=== PATIENT | female | born 1990 | race Caucasian/White ===

== ENCOUNTER 2018-04-21 05:34 | Inpatient (IN) | payer BC, OTHER ==
[2018-04-21 06:07] VITALS: BMI 26.6
[2018-04-21] MEDS ORDERED: Promethazine HCl 25 MG/ML VIAL IM PRN (06:28)
[2018-04-21] MEDS ORDERED: NS / Oxytocin 40 units/1000ml 1,000 ML IV PRN (06:28)
[2018-04-21] MEDS ORDERED: Lidocaine 1% (PF) 30 ML VIAL SC PRN (06:28)
[2018-04-21] MEDS ORDERED: Lactated Ringer's 1,000 ML IV PRN (06:28)
[2018-04-21] MEDS ORDERED: Misoprostol 200 MCG TAB PR PRN (06:28)
[2018-04-21] MEDS ORDERED: HYDROcodone/Acetaminophen 5/325 mg Tablet PO PRN ×4 (06:28→20:06)
[2018-04-21] MEDS ORDERED: Ibuprofen 800 MG TAB PO PRN (06:28)
[2018-04-21] MEDS ORDERED: Ondansetron PF 4 MG/2 ML Vial IVP PRN (06:28)
[2018-04-21] MEDS ORDERED: Dextrose 5%-Lactated Ringers 1,000 ML IV SCH (06:30)
[2018-04-21 06:45] LABS: Hemoglobin 13.7 g/dL (12.0-16.0); Mean Corpuscular Hemoglobin 32.5 pg (27.0-31.0); Mean Corpuscular Volume 92.8 fL (78.0-98.0); Mean Platelet Volume 8.3 fL (7.4-10.4); Platelet Count 206 thou/uL (130-400); RBC Distribution Width 11.5 % (11.5-14.5); White Blood Cell (WBC) Count 9.7 thou/uL (4.8-10.8)
[2018-04-21 07:21] LABS: HBSAg Index 0.21 S/CO (0-0.99); Hep B Surf Ag Non-Reactive S/CO (NonReactive)
[2018-04-21 07:22] LABS: Syphilis Antibody Nonreactive (Nonreactive); Syphilis Antibody Index 0.07 S/CO (<1.00 Non-Reactive)
--- NOTE | 2018-04-21 12:32 | PDOC.LDHP ---
Labor and Delivery H&P Chief complaint: loss of fluid (Patient c.o a puddle of fluid on floor the size of her palm after using the restroom on 04.20.18 at 1200. She has had some small amounts of fluids in a pad since then. All were clear/yellow tinge. At approximately 2300 she started having more consistnetn painful contractions every 6 mins lasting 40 seconds. She arrived to the hospital at 0430 am for evaluation.) HPI: Patient c.o a puddle of fluid on floor the size of her palm after using the restroom on 04.20.18 at 1200. She has had some small amounts of fluids in a pad since then. All were clear/yellow tinge. At approximately 2300 she started having more consistnetn painful contractions every 6 mins lasting 40 seconds. She arrived to the hospital at 0430 am for evaluation. Current gestational age (weeks): 40 (6 days) Due date: 04/15/18 Grav: 1 Para: 0 Current complications: none Abnormal US findings: No Current medications: pre- vitamins Allergies/Adverse Reactions: Allergies Allergy/AdvReac Type Severity Reaction Status Date / Time No Known Allergies Allergy Verified 04/21/18 06:08 Social history: none - Physical Exam Vital signs reviewed and normal: yes General: NAD, breathing through contractions Lungs: nonlabored breathing Abdomen: gravid Extremeties: no edema FHT: category 1 - Vaginal Exam cm dilated: 5 Effacement: 90% Station: 0 - OB Labs Blood type: A RH: positive Antibody Screen: negative HIV: negative RPR: negative HEPSAg: negative 1 hour GCT: negative GBS: negative Urine drug screen: not done Rubella: non-immune - Assessment L&D Assessment: term rupture in membranes - Plan Plan: labor augmentation if indicated -: Anticipate low intervention protocol.
[2018-04-21] MEDS ORDERED: Oxytocin 10 UNITS/ML VIAL ONE ×2 (15:23)
[2018-04-21] MEDS ORDERED: Misoprostol 200 MCG TAB ONE (15:24)
--- NOTE | 2018-04-21 16:45 | PDOC.EVN ---
Event Note - Event Note Event Note: CTSP for deep variables with pushing and consideration of VE. Baby over very tight perineal body. Perineum infiltreated with 1% lidocaine prior to my arrival. Small 2* episiotomy performed, vigorous baby delivered with next push. Apgars pending. Placenta delivery and repair per Linette Kulkarni.
--- NOTE | 2018-04-21 17:12 | PDOC.OPDEL ---
OB Operative/Delivery Note Delivery Dr/Surgeon: Milad Kulkarni Assist: Kenan Pre-Delivery Diagnosis: active labor Procedure/Post Delivery Dx: spontaneous vaginal delivery (2nd degree episiotomy) Weeks gestation: 40 Anesthesia: local (local in perineium) - Additional Findings/Plan Placenta delivered: spontaneous Repaired Obstetrical Laceration: episiotomy (2nd degree) Estimated blood loss: 400mL see nurse note for QBL Post delivery plan: routine recovery
[2018-04-21] MEDS ORDERED: Milk Of Magnesia 30 ML UDCUP PO PRN (20:06)
[2018-04-21] MEDS ORDERED: Methylergonovine 0.2 MG/ML VIAL IM PRN (20:06)
[2018-04-21] MEDS ORDERED: Misoprostol 200 MCG TAB VAG PRN (20:06)
[2018-04-21] MEDS ORDERED: Benzocaine/Menthol 20-0.5% 60 ML CAN TOP PRN (20:06)
[2018-04-21] MEDS ORDERED: NS / Oxytocin 40 units/1000ml 1,000 ML IV SCH (20:06)
[2018-04-21] MEDS ORDERED: Bisacodyl 10 MG SUPP PR PRN (20:06)
[2018-04-21] MEDS ORDERED: Lanolin Ointment 7 GM TUBE TOP PRN (20:06)
[2018-04-21] MEDS: Docusate Calcium (SURFAK) 240 MG CAP PO SCH (21:29)
[2018-04-21] MEDS: Ibuprofen 800 MG TAB PO SCH (21:29)
[2018-04-22] MEDS: Ibuprofen 800 MG TAB PO SCH ×3 (05:21→18:52)
[2018-04-22 05:40] LABS: Hemoglobin 11.1 g/dL (12.0-16.0); Mean Corpuscular HGB CONC 35.5 g/dL (32.0-36.0); Mean Corpuscular Hemoglobin 33.3 pg (27.0-31.0); Mean Corpuscular Volume 93.6 fL (78.0-98.0); Mean Platelet Volume 7.6 fL (7.4-10.4); Platelet Count 189 thou/uL (130-400); RBC Distribution Width 11.6 % (11.5-14.5); Red Blood Cell (RBC) Count 3.35 mill/uL (4.20-5.40); White Blood Cell (WBC) Count 9.6 thou/uL (4.8-10.8)
[2018-04-22] MEDS: Prenatal Vitamin 1 TAB PO SCH (08:27)
[2018-04-22] MEDS: Ferrous Sulfate 325 MG TAB PO SCH ×2 (08:27→17:45)
[2018-04-22] MEDS: Docusate Calcium (SURFAK) 240 MG CAP PO SCH ×2 (08:27→22:19)
--- NOTE | 2018-04-22 08:28 | PDOC.PP ---
Post Progress Note Post Day #: 1 Subjective: Doing well. Infant is still not latching - sucking on tongue mostly. Breast pump at bedside. She thinks she may have a hemorrhoid. Bleeding is getting to be less and less. PO intake tolerated: yes Flatus: yes Ambulation: yes Vital Signs (12 hours) Temp Pulse Resp BP 04/22/18 05:15 98.1 F 57 L 16 115/70 04/22/18 01:15 98.1 F 61 16 101/61 04/21/18 20:40 98.6 F 65 18 116/69 Weight Weight 165 lb - Physical Examination General: NAD Cardiovascular: RRR Respiratory: non-labored breathing Abdominal: lochia (minimal) Extremities: negative homans (B) Skin: no rash Neurological: no gross focal deficits Psychiatric: A&Ox3, normal affect Result Diagrams: 04/22/18 05:26 Additional Labs: Post Labs Blood Type A POSITIVE 04/21/18 06:20 Hep Bs Antigen Non-Reactive S/CO (NonReactive) 04/21/18 06:20 (1) (spontaneous vaginal delivery) Code(s): O80 - ENCOUNTER FOR FULL-TERM UNCOMPLICATED DELIVERY Status: Acute (2) History of episiotomy Code(s): Z98.890 - OTHER SPECIFIED POSTPROCEDURAL STATES Status: Acute (3) heart rate deceleration, delivered, current hospitalization Code(s): O76 - ABNLT IN HEART RATE AND RHYTHM COMP LABOR AND DELIVERY Status: Acute (4) heart rate decelerations affecting management of mother Code(s): O36.8390 - MATERN CARE FOR ABNLT FETL HRT RATE OR RHYM, UNSP TRI, UNSP Status: Acute - Assessment/Plan A: G1 now P1 sp complicated by heart rate bradycardia and epis. P: discharge home tomorrow. consults.
[2018-04-22] MEDS ORDERED: Adacel (T-DAP) 0.5 ML SYRINGE IM ONE (21:00)
[2018-04-22] MEDS ORDERED: Varicella virus, LIVE 0.5 ML VIAL SC ONE (21:00)
[2018-04-22] MEDS ORDERED: Measles/Mumps/Rubella 10 MCG/0.5 ML VIAL SC ONE (21:00)
[2018-04-23] MEDS: Ibuprofen 800 MG TAB PO SCH ×3 (05:42→14:30)
[2018-04-23 08:28] VITALS: BP 108/75; TEMP 98.1
[2018-04-23] MEDS: Ferrous Sulfate 325 MG TAB PO SCH ×2 (09:29→16:31)
[2018-04-23] MEDS: Docusate Calcium (SURFAK) 240 MG CAP PO SCH (10:29)
[2018-04-23] MEDS: Prenatal Vitamin 1 TAB PO SCH (10:29)
== END 2018-04-23 19:00 | disposition home or self-care (01) | DRG 807 ==
LOC: L&D-LIB 05:34 → 3SW 19:35
PROVIDERS: ADMIT Obstetrics & Gynecology; ATTEND Obstetrics & Gynecology
PROC: 10E0XZZ Delivery of Products of Conception, External Approach (ICD-10-PCS; principal; 2018-04-21)
PROC: 0KQM0ZZ Repair Perineum Muscle, Open Approach (ICD-10-PCS; 2018-04-21)
PROC: 0W8NXZZ Division of Female Perineum, External Approach (ICD-10-PCS; 2018-04-21)
DX: O48.0 Post-term pregnancy (principal); Z37.0 Single live birth; O76 Abnormality in fetal heart rate and rhythm complicating labor and delivery; O69.1XX0 Labor and delivery complicated by cord around neck, with compression, not applicable or unspecified; O70.1 Second degree perineal laceration during delivery; Z3A.40 40 weeks gestation of pregnancy
CPT/HCPCS: 36415; 85027; 86780; 86850; 86900; 86901; 87340; 99285; J2001; J2590